=== PATIENT | male | born 1985 | race Caucasian/White ===

== ENCOUNTER → 2017-09-11 | Outpatient (REF) | payer BC ==
[2017-09-11 19:08] LABS: PLATELET COUNT, AUTOMATED 182 K/uL (150-450)
== END ==
PROVIDERS: ATTEND Physician Assistant Medical
DX: M79.662 Pain in left lower leg (principal); R60.0 Localized edema
CPT/HCPCS: 82040; 82247; 82310; 82374; 82435; 82565; 82947; 84075; 84132; 84155; 84295; 84450; 84460; 84520; 85025

== ENCOUNTER → 2017-09-11 | Outpatient (CLI) | payer BC ==
--- NOTE | 2017-09-11 20:08 | RADIOLOGY IMAGING REPORT ---
FACILITY: [facility] [place] PATIENT NAME: Darien Ochoa : 1985 MR: [id number] V: [id number] EXAM DATE: ORDERING PHYSICIAN: SUSU QUEZADA TECHNOLOGIST: Location: [facility] Patient: Darien Ochoa : 1985 Visit/Account:[id number] Date of Sevice: 09/11/2017 Venous Doppler ultrasound left lower extremity Indication: Left leg pain and swelling. Injury one week ago.. Comparison: None Available Findings: Duplex Doppler and color flow imaging was performed. The common femoral, femoral, and popl iteal veins are all patent and compressible with normal Doppler wave forms. There are normal respons es to augmentation. The posterior tibial and peroneal veins are patent in the calf. The proximal greater saphenous vein is also normal. Subcutaneous tissues along the medial lower leg does show a small fluid collection measuring 2.0 x 0. 3 x 1.7 cm. Subcutaneous tissues are otherwise unremarkable. IMPRESSION: 1. No evidence of deep venous thrombosis of the left lower extremity. 2. Along the medial aspect of the mid lower leg there is a small 2 cm fluid collection without blood flow. This most likely due to a seroma or resolving hematoma. I called report to SUSU QUEZADA at 09/11/2017 8:04 PM. Report Dictated By: Glenroy Amaya at 09/11/2017 7:55 PM Report E-Signed By: Glenroy Amaya at 09/11/2017 8:04 PM WSN:[id number]
== END ==
LOC: US 18:17
PROVIDERS: ATTEND Physician Assistant Medical
DX: M79.662 Pain in left lower leg (principal); R60.0 Localized edema